=== PATIENT | male | born 1950 | race African-American/Black ===

== ENCOUNTER 2018-02-28 15:00 | Emergency (ER) | payer MEDICARE ==
[~2018-02-28] VITALS: Ht 188 cm; Wt 86.0 kg
[2018-02-28] MEDS ORDERED: HYDROCODONE/ACETAMINOPHEN 10/325MG TABLET PO ONE (16:00)
[2018-02-28] MEDS ORDERED: MORPHINE SULFATE 2 MG/ML CPJ (NOT FOR IM USE) IV ONE (16:15)
[2018-02-28] MEDS ORDERED: DIAZEPAM 5 MG TABLET PO ONE ×2 (17:00→18:00)
[2018-02-28 17:39] LABS: BASOPHILS % 0.3 % (0.0-2.0); EOSINOPHILS % 2.3 % (0.0-5.0); HEMATOCRIT. 42.8 % (42.0-52.0); HEMOGLOBIN. 14.2 g/dL (14.0-18.0); LYMPHOCYTES % 19.3 % (20.0-50.0); MEAN CORPUSCULAR HEMOGLOBIN 32.5 pg (28.0-32.0); MEAN CORPUSCULAR VOLUME 98.1 fL (80.0-94.0); MEAN PLATELET VOLUME 9.3 fl (7.4-10.4); MONOCYTES % 7.5 % (2.0-8.0); NEUTROPHILS % 70.6 % (40.0-76.0); PLATELET 218 x1000/uL (130-400); RED BLOOD CELL COUNT 4.36 mill/uL (4.7-6.1); RED CELL DISTRIBUTION WIDTH 13.9 % (11.6-14.6)
[2018-02-28 17:46] LABS: CHLORIDE 106 mEq/L (98-107)
[2018-02-28] MEDS ORDERED: KETOROLAC 15MG/ML VIAL IV ONE (18:00)
[2018-02-28 18:08] VITALS: BP 134/95
== END 2018-02-28 18:23 | disposition home or self-care (01) ==
LOC: ER 15:00
DX: S20.219A Contusion of unspecified front wall of thorax, initial encounter (principal); S20.222A Contusion of left back wall of thorax, initial encounter; I10 Essential (primary) hypertension; E78.00 Pure hypercholesterolemia, unspecified; F17.200 Nicotine dependence, unspecified, uncomplicated; W01.0XXA Fall on same level from slipping, tripping and stumbling without subsequent striking against object, initial encounter; Y92.89 Other specified places as the place of occurrence of the external cause; Y99.8 Other external cause status; Y93.89 Activity, other specified
CPT/HCPCS: 36415; 71111; 72070; 80053; 85025; 96374; 96375; 99285; J1885; J2270

== ENCOUNTER 2018-03-12 11:40 | Emergency (ER) | payer MEDICARE ==
[~2018-03-12] VITALS: Ht 180.3 cm; Wt 94.0 kg
[2018-03-12] MEDS ORDERED: KETOROLAC 60MG/2ML VIAL IM STA (12:32)
[2018-03-12] MEDS ORDERED: DIAZEPAM 5 MG TABLET PO ONE (12:45)
[2018-03-12] MEDS ORDERED: MORPHINE SULFATE 10 MG/ML CPJ IM ONE ×2 (15:00→16:15)
[2018-03-12] MEDS ORDERED: HYDROCODONE/ACETAMINOPHEN 5/325MG TABLET PO ONE (15:45)
[2018-03-12 16:44] VITALS: BP 146/95
== END 2018-03-12 16:46 | disposition home or self-care (01) ==
LOC: ER 12:54
DX: M54.5 Low back pain (principal); M54.16 Radiculopathy, lumbar region; I48.91 Unspecified atrial fibrillation; E78.00 Pure hypercholesterolemia, unspecified; I10 Essential (primary) hypertension
CPT/HCPCS: 71045; 72131; 96372; 99284; J1885; J2270